=== PATIENT | female | born 1980 | race Caucasian/White ===

== ENCOUNTER 2017-12-23 19:07 | Day surgery (SDC) | payer OTHER ==
--- NOTE | 2017-12-24 06:04 | PRG ---
OB ED NOTE DATE OF SERVICE: 12/23/2017 TIME OF SERVICE: 2000 hours. PRESENTING COMPLAINT: Cramps. HISTORY OF PRESENT ILLNESS: Ms. Arellano is a 37-year-old 6, para 5, AB 0 at 31 weeks gestatio n, who sees Dr. Quintana. She denies rupture of membranes, vaginal bleeding, reports active fetus. S he reports occasional cramps since approximately 11:00 today. She denies rupture of membranes. OB AND CLIENT REPRESENTATIVE HISTORY: Antepartum record not available on the unit. x5. Reports a history of abno rmal Pap smear, this is going to be addressed . PAST MEDICAL HISTORY: Denies. PAST SURGICAL HISTORY: Denies. ALLERGIES: Denies. MEDICATIONS: vitamins. SOCIAL HISTORY: One half pack per day tobacco use, denies IV drug or alcohol use. FAMILY HISTORY: Noncontributory. REVIEW OF SYSTEMS: Noncontributory. PHYSICAL EXAMINATION: GENERAL: White female in no acute distress. VITAL SIGNS: Blood pressure 118/72, temperature 98.6, respirations 18, pulse 85. HEENT: Within normal limits. LUNGS: Clear to auscultation bilaterally. HEART: Regular rhythm. ABDOMEN: Soft, nontender. No rebound or guarding. PELVIC: Vulva without lesions. Vagina without discharge. Cervix closed, long, high, firm, cephalic presentation. EXTREMITIES: Without clubbing, cyanosis, or edema. FHTs are 130s to 140s, positive accelerations, n o decels, no contractions noted. IMPRESSION: Discomforts of at 31 weeks. No evidence of labor, no evidence of pret erm cervical dilatation. PLAN: Discharge home, keep scheduled 2-week followup with Dr. Quintana. ER precautions.
== END 2017-12-23 20:15 | disposition home or self-care (01) ==
LOC: L&D/OP 19:07
PROVIDERS: ATTEND Student in an Organized Health Care Education/Training Program
DX: O99.89 Other specified diseases and conditions complicating pregnancy, childbirth and the puerperium (principal); R25.2 Cramp and spasm; O99.333 Smoking (tobacco) complicating pregnancy, third trimester; Z3A.31 31 weeks gestation of pregnancy; Z79.899 Other long term (current) drug therapy
CPT/HCPCS: 99282

== ENCOUNTER 2018-02-16 07:25 | Inpatient (IN) | payer OTHER ==
[2018-02-16 07:35] VITALS: BMI 35.9
[2018-02-16] MEDS ORDERED: Methylergonovine 0.2 MG/ML VIAL IM PRN (08:47)
[2018-02-16] MEDS ORDERED: Ondansetron HCl/PF 4 MG/2 ML Vial IVP PRN ×3 (08:47→22:17)
[2018-02-16] MEDS ORDERED: Ibuprofen 800 MG TAB PO PRN (08:47)
[2018-02-16] MEDS ORDERED: LR / Pitocin 40 units/1000 ml 1,000 ML IV PRN (08:47)
[2018-02-16] MEDS ORDERED: HYDROcodone/Acetaminophen 5/325 mg Tablet PO PRN ×2 (08:47→22:17)
[2018-02-16] MEDS ORDERED: Diphenoxylate HCl/Atropine Tablet PO PRN (08:47)
[2018-02-16] MEDS ORDERED: Lidocaine 1% (PF) 30 ML VIAL SC PRN (08:47)
[2018-02-16] MEDS ORDERED: Misoprostol 200 MCG TAB PR PRN (08:47)
[2018-02-16] MEDS ORDERED: Promethazine HCl 25 MG/ML VIAL IM PRN ×2 (08:47→12:06)
[2018-02-16] MEDS ORDERED: Acetaminophen 500 MG TAB PO PRN (08:47)
[2018-02-16] MEDS ORDERED: Carboprost 250 MCG/ML AMP IM PRN (08:47)
[2018-02-16] MEDS: Lactated Ringer's 1,000 ML IV SCH ×2 (09:30→12:18)
--- NOTE | 2018-02-16 09:33 | PRG ---
DATE OF SERVICE: 02/16/2018 OB/ER ENCOUNTER PRIMARY OPS MANAGER: Dr. Madalyn Quintana at [facility]. CHIEF COMPLAINT: Abdominal pain. HISTORY OF PRESENT ILLNESS: The patient is a 37-year-old G6, P5 female with an intrauterine pregnanc y at 38 weeks and 6 days who is presenting to Labor and Delivery with abdominal pains, uterine contra ctions that began this morning at about 2:30 that have intensified. Patient is scheduled for inducti on of labor tomorrow. Patient reports bloody show on Saturday. Denies any leakage of fluid. Denies a ny recent illness, fever, fall, headache, chest pain, shortness of breath. She has had some nausea. Denies vomiting. Denies new skin rashes. Denies any significant bleeding, urinary urgency or frequ ency. PAST MEDICAL HISTORY: Significant for hepatitis C and squamous cell carcinoma diagnosed in . PAST SURGICAL HISTORY: Negative. SOCIAL HISTORY: The patient is a former IV drug user and uses tobacco. Denies any alcohol use. ALLERGIES: No known drug allergies. MEDICATIONS: vitamins. OB LABORATORY DATA: Blood type is O positive, antibody screen is negative. She is rubella immune, R MI is nonreactive. Hepatitis B surface antigen is negative. Again, she has hepatitis C, GC and chla mydia negative and has Pap smear positive for squamous cell carcinoma with reported biopsies with JAY 3. REVIEW OF SYSTEMS: Per HPI. PHYSICAL EXAMINATION: VITAL SIGNS: Blood pressure 136/81, heart rate of 74, respiratory rate of 20, satting 100% on room a ir, temperature 98.0. GENERAL: She appears to be in no acute distress. She is alert and oriented, cooperative and pleasan t to interact with. HEAD: Normocephalic, atraumatic. LUNGS: Clear to auscultation bilaterally. HEART: Has regular rate and rhythm. ABDOMEN: Soft and gravid. EXTREMITIES: Nontender, nonedematous. CERVICAL EXAM: Per nursing staff is 317 -1 station. heart tracing performed for abdominal pain at term duration thus far is approximately 30 minute s, baseline is noted to be in 110s with moderate long-term variability and positive accelerations, no decelerations. Contractions appeared to be every 5 minutes apart with irritability and inconsistent . ASSESSMENT AND PLAN: The patient is a 37-year-old female G6, P5 with an intrauterine at 38 weeks and 6 days, scheduled for an induction of labor tomorrow here presenting with contractions. A t this point, there is no evidence of active labor. We will reevaluate in a couple of hours to make further assessment. Dr. Rendon is coming on duty and will be taking over care. Dr. Quintana, her prim robert OB will be notified to assist in management decisions.
[2018-02-16 09:45] LABS: Mean Corpuscular HGB CONC 34.5 g/dL (32.0-36.0); Mean Corpuscular Hemoglobin 31.2 pg (27.0-31.0); Mean Corpuscular Volume 90.3 fl (81.0-99.0); Platelet Count 279 thou/uL (130-400); RBC Distribution Width 11.4 % (11.5-14.5); Red Blood Cell (RBC) Count 4.18 mill/uL (4.20-5.40)
[2018-02-16 10:07] LABS: ALT (SGPT) 21 U/L (8-55); AST (SGOT) 28 U/L (5-34); Albumin 3.7 g/dL (3.5-5.0); Alkaline Phosphatase 151 U/L (40-150); Anion Gap 15 mmol/L (10-20); BUN (Urea Nitrogen) 9 mg/dL (7.0-18.7); Bilirubin, Total 0.3 mg/dL (0.2-1.2); Calc. Creatinine Clearance 180 mL/min (70-130); Calcium 9.5 mg/dL (7.8-10.44); Carbon Dioxide 20 mmol/L (22-29); Chloride 104 mmol/L (98-107); Estimated GFR-MDRD Greater than 90; Globulin 3.4 g/dL (2.4-3.5); Glucose 115 mg/dL (70-105); Potassium 4.1 mmol/L (3.5-5.1); Protein, Total 7.1 g/dL (6.0-8.3); Sodium 135 mmol/L (136-145)
[2018-02-16 10:19] LABS: Amphetamine Not Detected (NotDetected); Barbiturates Screen Not Detected (NotDetected); Benzodiazepine Screen Not Detected (NotDetected); Cocaine Metabolite Screen Not Detected (NotDetected); Medtox Control Line Valid? VALID (VALID); Medtox Reader # READER 4; Methadone Not Detected (NotDetected); Methamphetamine Not Detected (NotDetected); Opiate Screen Not Detected (NotDetected); Oxycodone Screen Not Detected (NotDetected); Phencyclidine (PCP) Not Detected (NotDetected); THC/Cannabinoid Screen Not Detected (NotDetected); Tricyclic Screen Not Detected (NotDetected)
[2018-02-16 10:25] LABS: HBSAg Index 0.21 S/CO (0-0.99); Hep B Surf Ag Non-Reactive S/CO (NonReactive); Syphilis Antibody Nonreactive (Nonreactive); Syphilis Antibody Index 0.51 S/CO (<1.00 Non-Reactive)
[2018-02-16] MEDS ORDERED: LR 500 ML/Oxytocin 10 units 500 ML ONE (10:53)
[2018-02-16] MEDS ORDERED: Bupivacaine 0.5% 20 ML, Fentanyl 400 MCG in Sodium Chloride 0.9% 72 ML EPIDURAL SCH (11:15)
[2018-02-16] MEDS ORDERED: DISCONTINUE ALL PREVIOUS NARCOTICS FS SCH (11:15)
[2018-02-16] MEDS ORDERED: Eucerin (Mineral Oil/Petrolatum,White) 30 gm Jar TOP PRN (12:06)
[2018-02-16] MEDS ORDERED: Lactated Ringer's 500 ML IV PRN (12:06)
[2018-02-16] MEDS ORDERED: Naloxone HCl 0.4 mg/ml Vial IVP PRN ×2 (12:06)
[2018-02-16] MEDS ORDERED: Acetaminophen 325 MG TAB PO PRN (12:06)
[2018-02-16] MEDS ORDERED: ePHEDrine/0.9% NaCl/PF SYRINGE 50 mg/10 ml SLOW IVP PRN (12:06)
[2018-02-16] MEDS ORDERED: diphenhydrAMINE 50 MG/ML VIAL IVP PRN (12:06)
[2018-02-16] MEDS ORDERED: Communication Order-Pharmacy FS SCH (12:15)
[2018-02-16] MEDS ORDERED: Fentanyl 4mcg/Marcaine 0.1% Cassette 100 ML EPIDURAL SCH (12:15)
[2018-02-16] MEDS ORDERED: Nicotine 14 MG PATCH TOP SCH (13:00)
[2018-02-16] MEDS ORDERED: Bicitra 30 ML UDCUP ONE (15:03)
--- NOTE | 2018-02-16 16:21 | PDOC.EVN ---
Event Note - Event Note Event Note: @1615: AMNIOTOMY NOTE: Asked by Dr Lilian parry perform AROM. I discussed AROM procedure with patient at bedside. AROM performed without difficulty. Exam /. Moderate clear fluid noted. FHTS 150s. No complications noted. Internals not placed at this point.
[2018-02-16] MEDS ORDERED: Calcium Carbonate 500 MG ChewTAB PO SCH (16:45)
--- NOTE | 2018-02-16 18:59 | PDOC.OPDEL ---
OB Operative/Delivery Note Delivery Dr/Surgeon: Lilian Assist: n/a Pre-Delivery Diagnosis: active labor Procedure/Post Delivery Dx: spontaneous vaginal delivery Weeks gestation: 38 Anesthesia: epidural - Findings A Sex: male - 1 min: 9 - 5 min: 9 - Additional Findings/Plan Placenta delivered: spontaneous Repaired Obstetrical Laceration: none Estimated blood loss: 200 Compilations/Other Findings: NC x 1 reduced at perineum, true knot x 1. Post delivery plan: routine recovery
[2018-02-16 19:43] LABS: HIV (1/2) Antibody/Antigen Non-Reactive (NonReactive)
[2018-02-16] MEDS: LR 500 ML/Oxytocin 10 units 500 ML IV SCH (21:19)
[2018-02-16] MEDS ORDERED: LR / Pitocin 40 units/1000 ml 1,000 ML IV SCH (22:17)
[2018-02-16] MEDS ORDERED: Lanolin Ointment 7 GM TUBE TOP PRN (22:17)
[2018-02-16] MEDS ORDERED: Bisacodyl 10 MG SUPP PR PRN (22:17)
[2018-02-16] MEDS ORDERED: diphenhydrAMINE 25 MG CAP PO PRN (22:17)
[2018-02-16] MEDS ORDERED: Preparation H Ointment 28 GM TUBE PR PRN (22:17)
[2018-02-16] MEDS ORDERED: Benzocaine/Menthol 20-0.5% 60 ML CAN TOP PRN (22:17)
[2018-02-16] MEDS ORDERED: Milk Of Magnesia 30 ML UDCUP PO PRN (22:17)
[2018-02-16] MEDS ORDERED: Ibuprofen 800 MG TAB PO SCH (22:30)
[2018-02-16] MEDS ORDERED: Docusate Calcium (SURFAK) 240 MG CAP PO SCH (22:30)
[2018-02-16] MEDS ORDERED: Adacel (T-DAP) 0.5 ML VIAL IM ONE (22:45)
[2018-02-17] MEDS: Ibuprofen 800 MG TAB PO SCH ×3 (05:31→22:03)
--- NOTE | 2018-02-17 07:30 | PDOC.PP ---
Post Progress Note Post Day #: 1 PO intake tolerated: yes Flatus: yes Ambulation: yes Vital Signs (12 hours) Temp Pulse Resp BP 02/17/18 04:00 98.1 F 78 16 113/67 02/17/18 00:13 98.3 F 85 20 130/71 02/16/18 23:45 98.3 F 85 20 02/16/18 22:45 89 20 140/60 02/16/18 21:45 98.9 F 86 20 130/68 Weight Weight 229 lb - Physical Examination General: NAD Cardiovascular: RRR Respiratory: non-labored breathing Abdominal: no distention, appropriately TTP Fundus firm & at: umb-2 Extremities: negative homans (B) Neurological: no gross focal deficits Psychiatric: normal affect Result Diagrams: 02/16/18 09:29 02/16/18 09:29 Additional Labs: Post Labs Blood Type O POSITIVE 02/16/18 09:29 Hep Bs Antigen Non-Reactive S/CO (NonReactive) 02/16/18 09:29 - Assessment/Plan PPD1 s/p TSVD VSSAF Doing well lochia = menses Rh pos RImm HepC ok for , for FU with ID PP Cervical dysplasia- for [facility] with onc PP h/o drug use - UDS neg Cont PP care.
--- NOTE | 2018-02-17 07:31 | PDOC.LDHP ---
Labor and Delivery H&P Chief complaint: contractions HPI: 37yo at 38w6d by LMP with painful ctx q 5min, SVE change from 2-->3cm. No LOF VB. Current gestational age (weeks): 38 Due date: 02/24/18 Dating criteria: last menstrual period Grav: 6 Para: 5 Current complications: none Abnormal US findings: No Past Medical History: Active Hep C, h/o IV meth use, CIN3 Current medications: pre- vitamins Allergies/Adverse Reactions: Allergies Allergy/AdvReac Type Severity Reaction Status Date / Time No Known Allergies Allergy Verified 02/16/18 07:36 - Physical Exam Vital signs reviewed and normal: yes General: breathing through contractions Heart: RRR Lungs: CTAB Abdomen: gravid Extremeties: no edema FHT: category 1 [place] contractions every: q5min - Vaginal Exam cm dilated: 10 Effacement: 100% Station: 2+ - OB Labs RH: positive Antibody Screen: negative HIV: negative RPR: negative HEPSAg: negative 1 hour GCT: negative GBS: negative Urine drug screen: negative Rubella: immune - Assessment L&D Assessment: term patient in labor - Plan Plan: admit to L&D, labor augmentation if indicated, informed consent obtained, anesthesia consult for pain management -: Hep C precautions including no internal monitoring and avoiding prolonged ROM, for FU with ID PP for treatment.
[2018-02-17] MEDS: Docusate Calcium (SURFAK) 240 MG CAP PO SCH ×2 (08:07→22:04)
[2018-02-17] MEDS: Prenatal Vitamin 1 TAB PO SCH (08:07)
[2018-02-17] MEDS: Ferrous Sulfate 325 MG TAB PO SCH ×2 (08:08→18:04)
[2018-02-17] MEDS: LR 500 ML/Oxytocin 10 units 500 ML IV SCH (12:45)
[2018-02-17] MEDS: HYDROcodone/Acetaminophen 5/325 mg Tablet PO PRN (15:40)
[2018-02-18] MEDS: HYDROcodone/Acetaminophen 5/325 mg Tablet PO PRN (04:53)
[2018-02-18] MEDS: Ibuprofen 800 MG TAB PO SCH (06:04)
[2018-02-18 08:04] VITALS: BP 125/67; TEMP 97.8
[2018-02-18] MEDS: Ferrous Sulfate 325 MG TAB PO SCH (08:21)
[2018-02-18] MEDS: Prenatal Vitamin 1 TAB PO SCH (09:45)
[2018-02-18] MEDS: Docusate Calcium (SURFAK) 240 MG CAP PO SCH (09:45)
== END 2018-02-18 12:33 | disposition home or self-care (01) | DRG 774 ==
LOC: L&D/OP 07:25 → L&D 09:44 → 3SW 22:03
PROVIDERS: ADMIT Student in an Organized Health Care Education/Training Program; ATTEND Student in an Organized Health Care Education/Training Program
PROC: 10E0XZZ Delivery of Products of Conception, External Approach (ICD-10-PCS; principal; 2018-02-16)
DX: O9A.12 Malignant neoplasm complicating childbirth (principal); O98.42 Viral hepatitis complicating childbirth; C80.1 Malignant (primary) neoplasm, unspecified; B18.2 Chronic viral hepatitis C; O99.334 Smoking (tobacco) complicating childbirth; F17.210 Nicotine dependence, cigarettes, uncomplicated; O69.81X0 Labor and delivery complicated by cord around neck, without compression, not applicable or unspecified; O69.2XX0 Labor and delivery complicated by other cord entanglement, with compression, not applicable or unspecified; Z3A.38 38 weeks gestation of pregnancy; Z37.0 Single live birth
CPT/HCPCS: 51702; 80053; 80306; 85027; 86780; 86850; 86900; 86901; 87340; 87389; 88307; 99285; J2001; J2405; J3010; J3490; J7050; J7120

== ENCOUNTER 2018-06-30 10:18 | Emergency (ER) | payer OTHER ==
[2018-06-30 10:38] LABS: Bilirubin Small (Negative); Blood, Urine Negative (Negative); Clarity CLOUDY (Clear); Glucose, Urine (Dipstick) Negative (Negative); Leukocyte Trace (Negative); Nitrite Negative (Negative); Protein, Urine (Dipstick) Negative (Neg-Trace); Specific Gravity, Urine 1.016 (1.002-1.036); Urobilinogen 0.2 mg/dL (0.2-1.0)
[2018-06-30 10:39] LABS: Pregnancy Test - Urine (BHCG) Negative (Negative); Pregu Control Background? CLEAR/WHITE (CLR/WHITE); Pregu Control Bar Appear? YES (CONTROL BAR); Specific Gravity 1.016 (1.002-1.036)
[2018-06-30 10:40] LABS: Bacteria/HPF None Seen HPF (None Seen)
[2018-06-30 10:41] LABS: Pathc Cast-AUWi Flag 3.05 (0-2.49)
[2018-06-30 10:54] LABS: #Eosinphils 0.2 thou/uL (0.0-0.7); #Lymphocytes 1.8 thou/uL (1.20-3.40); #Monocytes 0.6 thou/uL (0.11-0.59); #Neutrophils 2.9 thou/uL (1.40-6.50); %Basophils 0.8 % (0.0-1.0); %Eosinophils 3.2 % (0.0-10.0); %Lymphocytes 31.7 % (21.0-51.0); %Monocytes 11.5 % (0.0-10.0); %Neutrophils 52.8 % (42.0-75.0); Hemoglobin 15.3 g/dL (12.0-16.0); Mean Corpuscular HGB CONC 34.6 g/dL (32.0-36.0); Mean Corpuscular Hemoglobin 31.4 pg (27.0-31.0); Mean Corpuscular Volume 90.7 fL (78.0-98.0); Mean Platelet Volume 8.3 fL (7.4-10.4); Platelet Count 238 thou/uL (130-400); RBC Distribution Width 11.6 % (11.5-14.5); Red Blood Cell (RBC) Count 4.88 mill/uL (4.20-5.40); White Blood Cell (WBC) Count 5.5 thou/uL (4.8-10.8)
[2018-06-30 10:54] LABS: Hyaline Casts/LPF 0-3 HYALINE CAST LPF (0-3 Hyaline); RBC/HPF 0-3 HPF (0-3)
[2018-06-30 10:55] LABS: Other Casts/LPF None Seen LPF (0-3 Hyaline)
[2018-06-30 11:13] LABS: ALT (SGPT) 55 U/L (8-55); AST (SGOT) 42 U/L (5-34); Albumin 4.4 g/dL (3.5-5.0); Alkaline Phosphatase 87 U/L (40-150); Anion Gap 15 mmol/L (10-20); BUN (Urea Nitrogen) 7 mg/dL (7.0-18.7); Bilirubin, Total 0.5 mg/dL (0.2-1.2); Calc. Creatinine Clearance 0 mL/min (70-130); Calcium 9.6 mg/dL (7.8-10.44); Carbon Dioxide 22 mmol/L (22-29); Chloride 104 mmol/L (98-107); Estimated GFR-MDRD 77; Globulin 3.7 g/dL (2.4-3.5); Glucose 118 mg/dL (70-105); Potassium 3.4 mmol/L (3.5-5.1); Protein, Total 8.1 g/dL (6.0-8.3); Sodium 138 mmol/L (136-145)
[2018-06-30] MEDS ORDERED: Ondansetron HCl/PF 4 MG/2 ML Vial ONE (11:36)
== END 2018-06-30 14:22 | disposition home or self-care (01) ==
LOC: ERS 10:18
DX: R10.30 Lower abdominal pain, unspecified (principal); R19.7 Diarrhea, unspecified; F17.210 Nicotine dependence, cigarettes, uncomplicated; Z79.899 Other long term (current) drug therapy
CPT/HCPCS: 36415; 80053; 81003; 81015; 81025; 85025; 96361; 96374; J2405

== ENCOUNTER 2019-02-17 17:54 | Emergency (ER) | payer OTHER, SELFPAY ==
[~2019-02-17 17:54] MED LIST: ISOVUE-370 76%-LOCM 1 ML ONE
[2019-02-17 18:57] LABS: Bilirubin Negative (Negative); Blood, Urine Negative (Negative); Clarity CLEAR (Clear); Glucose, Urine (Dipstick) Negative (Negative); Leukocyte Negative (Negative); Nitrite Negative (Negative); Protein, Urine (Dipstick) Negative (Neg-Trace); Specific Gravity, Urine 1.017 (1.002-1.036); Urobilinogen 0.2 mg/dL (0.2-1.0); pH, Urine 5.5 (5.0-9.0)
[2019-02-17 19:03] LABS: #Basophils 0.1 thou/uL (0.0-0.2); #Eosinphils 0.3 thou/uL (0.0-0.7); #Lymphocytes 3.4 thou/uL (1.20-3.40); #Monocytes 0.6 thou/uL (0.11-0.59); %Basophils 0.5 % (0.0-1.0); %Eosinophils 3.1 % (0.0-10.0); %Lymphocytes 32.9 % (21.0-51.0); %Monocytes 5.8 % (0.0-10.0); %Neutrophils 57.8 % (42.0-75.0); Hemoglobin 13.7 g/dL (12.0-16.0); Mean Corpuscular HGB CONC 33.6 g/dL (32.0-36.0); Mean Corpuscular Hemoglobin 31.3 pg (27.0-31.0); Mean Corpuscular Volume 93.1 fL (78.0-98.0); Mean Platelet Volume 7.9 fL (7.4-10.4); Platelet Count 279 thou/uL (130-400); RBC Distribution Width 11.6 % (11.5-14.5); White Blood Cell (WBC) Count 10.3 thou/uL (4.8-10.8)
[2019-02-17 19:23] LABS: ALT (SGPT) 73 U/L (8-55); AST (SGOT) 43 U/L (5-34); Albumin 3.9 g/dL (3.5-5.0); Alkaline Phosphatase 92 U/L (40-150); Anion Gap 9 mmol/L (10-20); BUN (Urea Nitrogen) 8 mg/dL (7.0-18.7); Bilirubin, Total Less than 0.2 mg/dL (0.2-1.2); Calc. Creatinine Clearance 0 mL/min (70-130); Calcium 9.2 mg/dL (7.8-10.44); Carbon Dioxide 26 mmol/L (22-29); Chloride 105 mmol/L (98-107); Estimated GFR-MDRD 75; Globulin 3.4 g/dL (2.4-3.5); Glucose 129 mg/dL (70-105); Lipase 17 U/L (8-78); Potassium 3.7 mmol/L (3.5-5.1); Protein, Total 7.3 g/dL (6.0-8.3); Sodium 136 mmol/L (136-145)
[2019-02-17 19:31] LABS: BHCG - Serum Negative (NEGATIVE); Pregs Control Background? CLEAR/WHITE (CLR/WHITE); Pregs Control Bar Appear? YES (CONTROL BAR)
--- NOTE | 2019-02-17 23:24 | CT ---
CT ABDOMEN AND PELVIS WITH CONTRAST: 02/17/19 HISTORY: Abdominal swelling. Pain. FINDINGS: There is some scarring in the lingula. No pericardial effusion. There is diffuse hepatic steatosis. Gallbladder is normal. No intrahepatic or extrahepatic biliary di latation. Multiple splenic granulomas, calcified, are present. The adrenal glands are unremarkable. No hydronephrosis. The aortoiliac contour is nonaneurysmal. The appendix is visualized and is normal. No dilated loops or large or small bowel. No adenopathy. Mo derate degenerative disc space disease at L5-S1 with end plate sclerosis. IMPRESSION: No acute inflammatory process within the abdomen or pelvis. POS: [facility]
== END 2019-02-17 23:40 | disposition home or self-care (01) ==
LOC: ERS 17:54
DX: R14.0 Abdominal distension (gaseous) (principal); R10.9 Unspecified abdominal pain; R79.89 Other specified abnormal findings of blood chemistry; I10 Essential (primary) hypertension; F17.210 Nicotine dependence, cigarettes, uncomplicated
CPT/HCPCS: 36415; 74177; 80053; 81003; 83690; 84703; 85025; Q9966

== ENCOUNTER 2020-08-07 20:04 | Inpatient (IN) | payer OTHER, SELFPAY ==
[2020-08-07] MEDS ORDERED: Vancomycin 1 GM/200 ML BAG ONE (20:54)
[2020-08-07] MEDS ORDERED: Ketorolac Tromethamine 30 MG/ML VIAL ONE (20:54)
[2020-08-07] MEDS ORDERED: Cefepime 2 GM VIAL ONE (20:54)
--- NOTE | 2020-08-07 21:41 | RAD ---
PORTABLE CHEST: History: Fever after spider bite. FINDINGS: Heart size and mediastinum are within normal limits. No infiltrative lung process seen. No significan t bony findings. IMPRESSION: No active intrathoracic disease. POS: OFF
[2020-08-07 22:13] LABS: ALT (SGPT) 18 U/L (8-55); AST (SGOT) 25 U/L (5-34); Albumin 3.4 g/dL (3.5-5.0); Alkaline Phosphatase 87 U/L (40-110); Anion Gap 15 mmol/L (10-20); BUN (Urea Nitrogen) 9 mg/dL (7.0-18.7); Bilirubin, Total 0.2 mg/dL (0.2-1.2); CK (CPK) 73 U/L (29-168); Calc. Creatinine Clearance 0 mL/min (70-130); Calcium 8.7 mg/dL (7.8-10.44); Carbon Dioxide 20 mmol/L (22-29); Chloride 104 mmol/L (98-107); Estimated GFR-MDRD 80; Globulin 3.7 g/dL (2.4-3.5); Glucose 70 mg/dL (70-105); Mean Platelet Volume 9.7 fL (7.4-10.4); Platelet Count 266 thou/uL (130-400); Potassium 3.9 mmol/L (3.5-5.1); Protein, Total 7.1 g/dL (6.0-8.3); Sodium 135 mmol/L (136-145)
[2020-08-07 22:14] LABS: #Basophils 0.1 thou/uL (0.0-0.2); #Eosinphils 0.2 thou/uL (0.0-0.7); #Lymphocytes 3.2 thou/uL (1.20-3.40); #Monocytes 1.2 thou/uL (0.11-0.59); #Neutrophils 8.7 thou/uL (1.40-6.50); %Basophils 0.4 % (0.0-1.0); %Eosinophils 1.2 % (0.0-10.0); %Lymphocytes 23.7 % (21.0-51.0); %Monocytes 9.1 % (0.0-10.0); %Neutrophils 65.5 % (42.0-75.0); Hemoglobin 14.2 g/dL (12.0-16.0); Mean Corpuscular HGB CONC 31.9 g/dL (32.0-36.0); Mean Corpuscular Hemoglobin 30.2 pg (27.0-31.0); Mean Corpuscular Volume 94.6 fL (78.0-98.0); RBC Distribution Width 12.2 % (11.5-14.5); Red Blood Cell (RBC) Count 4.71 mill/uL (4.20-5.40); White Blood Cell (WBC) Count 15.8 thou/uL (4.8-10.8)
--- NOTE | 2020-08-07 22:40 | PDOC.FPRHP ---
- History of Present Illness Chief Complaint: R Arm Pain History of Present Illness: Pt is a 40 y/o F who presents with R arm pain for the past week. She states that she was bitten by a spider (unsure what kind) and afterward developed arm swelling in her antecubital fossa which progressively got worse. She went to [facility] and was on IV antibiotics but stated that she left AMA 3 days ago because she was having bad panic attacks. She has not been taking any antibiotics during this time. Over the past 3 days her symptoms worsened and today the abscess started draining yellow fluid. She has been having subjective fevers and nausea and was concerned about the draining of the abscess and came back to the ER for this. She denied IV drug use and history of skin infections/MRSA infections. ED Course: vanc + cefepime, 1L NS, torodol IM - Allergies/Adverse Reactions Allergies Allergy/AdvReac Type Severity Reaction Status Date / Time No Known Allergies Allergy Verified 02/16/18 07:36 - Home Medications Medication Instructions Recorded Confirmed Type ALPRAZolam [Alprazolam] 1 tab PO BID 08/08/20 08/08/20 History Levothyroxine Sodium 125 mcg PO QAM 08/08/20 08/08/20 History buPROPion HCl [Wellbutrin] 300 mg PO QAM 08/08/20 08/08/20 History - History PMHx: -pre DM -anxiety/ocd/depression -Hypothyroidism PSHx: -cone biopsy 2019 -wrist surgery FHx: -DM and HTN Social: smokes 1PPD for last 25 years, occasional/social etoh, MJ use occasional , no IV drug hx - Review of Systems General: reports: fever/chills. denies: fatigue ENT: reports: nasal congestion, rhinorrhea Respiratory: denies: cough, congestion, shortness of breath Cardiovascular: denies: chest pain, palpitation Gastrointestinal: reports: nausea. denies: vomiting, diarrhea, constipation Genitourinary: denies: incontinence, dysuria, polyuria Skin: denies: rashes, itching Musculoskeletal: reports: pain, tenderness, swelling Neurological: denies: numbness Psychological: reports: anxiety - Vital signs BP: 102/70, HR 91, RR 16, Temp 98.1, O2 sat 100% on RA - Physical Exam Constitutional: NAD, awake, alert and oriented, well developed HEENT: PERRLA Neck: supple Heart: RRR, normal S1/S2, no murmurs/rubs/gallops Lungs: CTAB, no respiratory distress, good air movement, no rales/rhonchi, no wheezing Abdomen: soft, non-tender, bowel sounds present Musculoskeletal: normal structure, normal tone Neurological: no focal deficit, normal sensation -Skin: R arm, antecubital fossa induration, edema, warm to touch, erythema noted, drain site visible with some weeping and granulation type tissue surrounding area Heme/Lymphatic: no purpura, no petechia Psychiatric: other (anxious) FMR H&P: Results - Labs Result Diagrams: 08/08/20 04:54 08/08/20 04:54 Lab results: WBC 15.8 thou/uL (4.8-10.8) H 08/07/20 21:22 Hgb 14.2 g/dL (12.0-16.0) 08/07/20 21:22 Hct 44.5 % (36.0-47.0) 08/07/20 21:22 MCV 94.6 fL (78.0-98.0) 08/07/20 21:22 Plt Count 266 thou/uL (130-400) 08/07/20 21:22 Neutrophils % 65.5 % (42.0-75.0) 08/07/20 21:22 Sodium 135 mmol/L (136-145) L 08/07/20 21:22 Potassium 3.9 mmol/L (3.5-5.1) 08/07/20 21:22 Chloride 104 mmol/L (98-107) 08/07/20 21:22 Carbon Dioxide 20 mmol/L (22-29) L 08/07/20 21:22 BUN 9 mg/dL (7.0-18.7) 08/07/20 21:22 Creatinine 0.80 mg/dL (0.6-1.1) 08/07/20 21:22 Glucose 70 mg/dL (70-105) 08/07/20 21:22 Lactic Acid 1.5 mmol/L (0.5-2.2) 08/07/20 21:22 Calcium 8.7 mg/dL (7.8-10.44) 08/07/20 21:22 Total Bilirubin 0.2 mg/dL (0.2-1.2) 08/07/20 21:22 AST 25 U/L (5-34) 08/07/20 21:22 ALT 18 U/L (8-55) 08/07/20 21:22 Alkaline Phosphatase 87 U/L (40-110) 08/07/20 21:22 Creatine Kinase 73 U/L (29-168) 08/07/20 21:22 Serum Total Protein 7.1 g/dL (6.0-8.3) 08/07/20 21:22 Albumin 3.4 g/dL (3.5-5.0) L 08/07/20 21:22 - EKG Interpretation EKG: EKG NSR - Radiology Interpretation Chest x-ray Status: report reviewed by me (no acute cardiopulmonary process) FMR H&P: A/P - Plan 40 y/o F presents with one week of R arm pain and swelling. ## Sepsis 2/2 R Arm Cellulitis -tachycardia and leukocytosis -WBC 15.8, lactic acid 1.5 -vancomycin and cefepime in ED, continue with both -blood clx/wound clx -CBC, BMP -mIVF -NPO @ 12 AM with surgical consult in mind in AM -if patient become febrile will consider echo for endocarditis ## Pre Diabetes -A1C pend ## Hypothyroidism -on Levothyroxine at home ## Anxiety/Depression/OCD -continue home medications CODE: FULL VTE: lovenox DIET: regular, NPO @ 12AM PCP: Surya Boyd in [place] Dispo: admitted to inpatient FMR H&P: Upper Level - Plan Date/Time: 08/07/202238 IAlan [email or web address], have evaluated this patient and agree with findings/plan as outlined by journalism internship resident. Pertinent changes/additions are listed here. 40yo F with pmh of anxiety and hypothyroid presents with complaint of R arm pain. She was recently hospitalized in [facility] for cellulitis and abscess but eloped for several days without ABX. complains of fevers, nausea, no streaking or pain on mvmt of her arm. On exam she has HR 91 but otherwise vitals are wnl and stable. erythematous skin over R antecubital fossa with induration surrounding a 0.5cm x 0.5cm draining hole of purulent fluid, erythema is marked. A/P Sepsis 2/2 abscess and cellulitis A- Stable, not in shock. s/p 1L IVF, vanc, and cefepime. Pt did not receive adequate ABX at [facility] because of leaving AMA. P- continue vanc and cefepime -mIVF -f/u BCx and wound Cx -A1C as progression to DM would effect wound healing -gen surg consult in AM for I&D -consider echo if pt fevers again considering precarious location of infection and to r/o bacterial endocarditis Hypothyroid, Anxiety, prediabetes -home medications CODE: FULL dispo: inpatient, expect more than 2 midnights IVF: LR diet: npo at midnight Addendum - Attending - Attending Attestation Date/Time: 08/07/20 5540 I personally evaluated the patient and discussed the management with Dr. Bermeo and Dr. Leon I agree with the History, Examination, Assessment and Plan documented above with any addition or exceptions noted below. Patient with large abscess and surrounding area of cellulitis now with systemic symptoms qualifying for sepsis. Continue IVFs. Continue cef/vanc IV antibx. Culture obtained. Concern for drug use but patient denies. Left AMA without treatment at [facility] recently. Request records. US to be done. ESR/CRP orderd. ECHO if UDS pos. Blood cx pending. Gen surg for I&D and Washout. LMWH for VTE ppx. Tatyana
[2020-08-07] MEDS ORDERED: Ondansetron ODT 4 MG TAB PO PRN (23:17)
[2020-08-08 01:49] VITALS: BMI 34.4
[2020-08-08] MEDS: Acetaminophen 325 MG TAB PO PRN ×3 (02:06→20:54)
[2020-08-08] MEDS: Lactated Ringer's 1,000 ML IV SCH ×4 (02:06→22:24)
[2020-08-08] MEDS: Nicotine 14 MG PATCH TD SCH (02:18)
[2020-08-08] MEDS: ALPRAZolam 1 MG TAB PO SCH ×2 (02:18→20:54)
[2020-08-08 03:25] LABS: Amphetamine Detected (NotDetected); Barbiturates Screen Not Detected (NotDetected); Benzodiazepine Screen Detected (NotDetected); Cocaine Metabolite Screen Not Detected (NotDetected); Medtox Control Line Valid? VALID (VALID); Medtox Reader # READER 4; Methadone Not Detected (NotDetected); Methamphetamine Detected (NotDetected); Opiate Screen Not Detected (NotDetected); Oxycodone Screen Not Detected (NotDetected); Phencyclidine (PCP) Not Detected (NotDetected); THC/Cannabinoid Screen Detected (NotDetected); Tricyclic Screen Not Detected (NotDetected)
[2020-08-08] MEDS: Vancomycin 1.5 GRAM/300 ML BAG 1.5 GM in Premix Bag 1 BAG IVPB SCH ×3 (05:02→23:21)
[2020-08-08 05:10] LABS: #Eosinphils 0.3 thou/uL (0.0-0.7); #Lymphocytes 3.4 thou/uL (1.20-3.40); #Monocytes 0.9 thou/uL (0.11-0.59); #Neutrophils 5.8 thou/uL (1.40-6.50); %Basophils 0.4 % (0.0-1.0); %Eosinophils 2.5 % (0.0-10.0); %Lymphocytes 32.6 % (21.0-51.0); %Monocytes 8.7 % (0.0-10.0); %Neutrophils 55.8 % (42.0-75.0); Hemoglobin 12.7 g/dL (12.0-16.0); Mean Corpuscular HGB CONC 33.4 g/dL (32.0-36.0); Mean Corpuscular Volume 92.9 fL (78.0-98.0); Mean Platelet Volume 8.2 fL (7.4-10.4); Platelet Count 240 thou/uL (130-400); Red Blood Cell (RBC) Count 4.08 mill/uL (4.20-5.40); White Blood Cell (WBC) Count 10.5 thou/uL (4.8-10.8)
[2020-08-08] MEDS: Levothyroxine Sodium 125 MCG TAB PO SCH (05:10)
[2020-08-08 05:15] LABS: Hemoglobin A1c 5.1 % (4.0-6.0)
[2020-08-08 05:26] LABS: Lactic Acid 0.9 mmol/L (0.5-2.2)
[2020-08-08 05:30] LABS: Anion Gap 11 mmol/L (10-20); BUN (Urea Nitrogen) 12 mg/dL (7.0-18.7); Calc. Creatinine Clearance 177 mL/min (70-130); Calcium 8.7 mg/dL (7.8-10.44); Carbon Dioxide 23 mmol/L (22-29); Chloride 106 mmol/L (98-107); Estimated GFR-MDRD Greater than 90; Glucose 104 mg/dL (70-105); Potassium 3.8 mmol/L (3.5-5.1); Sodium 136 mmol/L (136-145)
--- NOTE | 2020-08-08 07:22 | PDOC.FM ---
- Subjective Subjective: Pt was sleeping comfortably when I saw her and was easy to arouse. She has no complaints at this time. She adamantly denies recent drug use, aside from marijuana, despite UDS positive for amphetamines and meth. She states the last time she used drugs other than marijuana was >10yrs ago. She said what she smoked belonged to someone else and she is not sure if it was laced with anything. When asked if her experience this time was different than usual she responded "it was not usual but I don't want to talk about it". She endorses pain with flexion of elbow but denies subjective fever, chills, dyspnea/SOB. - Objective Vital Signs & Weight: Vital Signs (12 hours) Temp Pulse Resp BP BP Pulse Ox 08/08/20 05:02 97.8 F 70 18 114/77 96 08/08/20 01:15 97.5 F L 73 18 127/76 97 Weight Weight 99.7 kg I&O: 08/07/20 08/08/20 08/09/20 06:59 06:59 06:59 Intake Total 1015 Balance 1015 Result Diagrams: 08/08/20 04:54 08/08/20 04:54 Phys Exam - Physical Examination Constitutional: NAD (Sleeping comfortably. Easily aroused) Respiratory: clear to auscultation bilateral Cardiovascular: RRR, no significant murmur Neurological: non-focal Psychiatric: normal affect Deviation from normal: Bandage covering wound. Erythema extending superiorly and inferiorly -: Erythema poorly demarcated; border marked and dated 08/07. Dx/Plan - Plan Plan: 40 y/o F presents with one week of R arm pain and swelling. Sepsis 2/2 R Arm Cellulitis - Tachycardia on arrival -> HR 70 on unit - Leukocytosis of 15.8 on arrival -> 10.5 on repeat - Afebrile - Lactic acid 1.5 -> 0.9 on repeat - Vancomycin and cefepime in ED, continue with both - Blood clx/wound clx pending - UDS positive for amph, meth, cannabinoids, benzos Admits to marijuana use Takes Xanax for anxiety Patiently adamantly denies other illicit/IV drug use - HIV 1/2, HepBSAg, Syphilis IgG/IgM non-reactive - Hep C Quant pending - mIVF - NPO @ 12 AM with possible surgical consult - Consider echo for endocarditis if becomes febrile Nicotine dependence - Nicotine patch - Smoking cessation counseling Pre Diabetes - A1C 5.1 Hypothyroidism - Levothyroxine at home - Resume home meds Anxiety/Depression/OCD - Continue home medications CODE: FULL VTE: lovenox DIET: regular, NPO @ 12AM PCP: Surya Boyd in [place] Dispo: admitted to inpatient, LOS >48h Addendum - Attending - Attending Attestation Date/Time: 08/08/20 1689 I personally evaluated the patient and discussed the management with Dr. Maria. I agree with the History, Examination, Assessment and Plan documented above with any addition or exceptions noted below. Sepsis 2/2 cellulitis c/b abscess formation s/p debridement with worsening o/n. Will d/w GS.
[2020-08-08 07:36] LABS: Pregnancy Test - Urine (BHCG) Negative (Negative)
[2020-08-08 07:38] LABS: Pregu Control Background? CLEAR/WHITE (CLR/WHITE); Pregu Control Bar Appear? YES (CONTROL BAR); Specific Gravity 1.042 (1.002-1.036)
[2020-08-08 08:29] LABS: HBSAg Index 0.13 S/CO (0-0.99); HIV (1/2) Antibody/Antigen Non-Reactive (NonReactive); Hep B Surf Ag Non-Reactive S/CO (NonReactive)
[2020-08-08 08:32] LABS: Hep C IgG Ab Reflex HepC Qnt (NonReactive); Hep C Index 13.49 S/CO (0-0.79)
[2020-08-08 08:50] LABS: Syphilis Antibody Nonreactive (Nonreactive); Syphilis Antibody Index 0.28 S/CO (<1.00 Non-Reactive)
--- NOTE | 2020-08-08 10:05 | ULT ---
ULTRASOUND SOFT TISSUE OTHER: (RIGHT ANTECUBITAL FOSSA) HISTORY: Pus draining from open wound at right antecubital fossa. FINDINGS/IMPRESSION: Sonographic evaluation of region of wound in the right antecubital fossa demonstrates no underlying l oculated fluid collection. There is soft tissue swelling and edema in this region. POS: OFF
[2020-08-08] MEDS: Enoxaparin Sodium 40 MG/0.4 ML SYRINGE SC SCH (10:33)
[2020-08-08] MEDS: buPROPion HCl 100 MG TAB PO SCH (10:34)
[2020-08-08 11:43] LABS: SARS-CoV-2 MS2 Positive; SARS-CoV-2 N Gene Negative; SARS-CoV-2 S Gene Negative; SARS-CoV-2 by NAA Not Detected (NotDetected); SARS-CoV-2 orf1ab Negative
[2020-08-08] MEDS: Cefepime 2 GM in Sodium Chloride 0.9% 100 ML IVPB SCH ×2 (12:14→22:23)
--- NOTE | 2020-08-08 16:15 | PDOC.CONS ---
- Consultation Encounter Date: 08/08/20 Encounter Time: 16:11 CHIEF COMPLAINT: Right arm pain HISTORY OF PRESENT ILLNESS: 40-year-old female with 1 week history of right arm pain. The patient suffered what she describes as a spider bite approximately 1 week ago. This became warm , erythematous, and painful. She was admitted to [facility] in [place] where she underwent antibiotic therapy. Reportedly , she left that institution AGAINST MEDICAL ADVICE. She presented to [facility] ER yesterday evening with concerns about the drainage. It is unclear whether the abscess spontaneously drained, or she underwent a drainage procedure. REVIEW OF SYSTEMS: General: Denies recent weight changes, fever, or chills. Eyes: Denies visual changes, pain, or irritation ENT: Denies changes in hearing, nasal discharge, or sore throat Cardiovascular: Denies chest pain, palpitations, shortness of breath, or edema. Respiratory: Denies cough, shortness of breath, or wheezing Gastrointestinal: Denies abdominal pain, nausea, or vomiting. Genitourinary: Denies frequent urination or dysuria Musculoskeletal: Per HPI Integumentary: Denies abnormal rashes, sores, or skin lesions Neurological: Denies numbness, tingling, or weakness. Psychiatric: Denies new onset anxiety or depression Endocrine: Denies temperature intolerances, polyuria, or excessive thirst Hematologic: Denies abnormal bruising or bleeding PAST MEDICAL HISTORY: Anxiety depression Hypothyroidism PAST SURGICAL HISTORY: Biopsy FAMILY HISTORY: Uncontributory SOCIAL HISTORY Current smoker, occasional illicit drug use, endorses occasional alcohol consumption. ALLERGIES: No known drug allergies PHYSICAL EXAM: Vital Signs: HR 91 BP 102/70 T 98.1 RR 16 SpO2 100% room air General: Alert and somnolent no acute distress. Obese ENT: Sclera anicteric, pupils equal and reactive, mucous membranes moist Neck: No jugular venous distention, trachea midline Cardiovascular: Regular rate and rhythm Pulmonary: Clear to auscultation Abdominal: Soft, nondistended, nontender Genitourinary: Normal anatomy Rectal: Deferred Integument: No abnormal rashes or lesions Musculoskeletal: Erythema, warmth, and induration of the antecubital fossa. Approximately 5 mm opening with mild purulent discharge. No appreciable fluid collection LABORATORY: Laboratory analysis reviewed and demonstrates white blood cell count of 10.5. Hemoglobin 12.7. Other labs grossly normal. Microbiology results reviewed and demonstrates Staphylococcus aureus. IMAGING: Ultrasound of the right upper extremity reviewed as well as the radiologist rotation. Demonstrates no evidence of fluid collection. ASSESSMENT: 40-year-old female with soft tissue infection of the right antecubital fossa with spontaneously draining abscess versus previous incision and drainage. No further drainage indicated. Consider packing wound with iodoform gauze. Continue antibiotics for MRSA coverage. PLAN: [ ]
[2020-08-08 21:30] LABS: Vancomycin, Trough 17.9 ug/mL
[2020-08-09] MEDS: Nicotine 14 MG PATCH TD SCH ×2 (03:24→06:07)
--- NOTE | 2020-08-09 05:19 | PDOC.FM ---
- Subjective Subjective: Cherrie(r)dari Arellano is feeling better today. She is requesting something more for pain either than Tylenol. She denies SOB/dyspnea/CP/new edema. - Objective Vital Signs & Weight: Vital Signs (12 hours) Temp Pulse Resp BP Pulse Ox 08/09/20 03:43 98.1 F 74 17 125/84 97 08/09/20 00:07 97.7 F 85 16 108/68 99 08/08/20 20:41 97.9 F 87 16 112/71 99 Weight Admit Weight 99.7 kg Weight 99.7 kg I&O: 08/07/20 08/08/20 08/09/20 06:59 06:59 06:59 Intake Total 1015 Balance 1015 Result Diagrams: 08/09/20 07:08/08/20 04:54 Phys Exam - Physical Examination Constitutional: NAD (Sleeping comfortably and easily arousable) Neck: supple, full ROM B/l rhonchi consistent with 25pkyr hx Cardiovascular: RRR, no significant murmur (difficult to auscultate, likely 2/2 hyperinflation) Neurological: non-focal, moves all 4 limbs Psychiatric: normal affect, A&O x 3 Deviation from normal: Erythema/Edema/Induration improved from yesterday -: Open I&D drainage site, can track, no obvious purulence Dx/Plan - Plan Plan: 40 y/o F presents with one week of R arm pain and swelling. Sepsis 2/2 R Arm Cellulitis - Tachycardia on arrival -> HR 70 on unit - Leukocytosis of 15.8 on arrival -> 10.5 -> 9.2 on 08/09 - Afebrile - Lactic acid 1.5 -> 0.9 on repeat - Vancomycin and cefepime x3 days on 08/09 Begin transition to oral - Wound Cx showed S. aureus Sensitivities pending - UDS positive for amph, meth, cannabinoids, benzos Admits to marijuana use Takes Xanax for anxiety Adamantly denies other illicit/IV drug use - HIV 1/2, HepBSAg, Syphilis IgG/IgM non-reactive - Hep C positive Hep C Quant pending - mIVF - Surgery consulted, seen by Dr. Lunsford on 08/08 Surgery not indicated, recommended continuing current abx - Consider echo for endocarditis if becomes febrile Nicotine dependence - 25pkyr smoking hx Pt says she is trying to cut down/quit. - Nicotine patch ordered - Smoking cessation counseling Pre Diabetes - A1C 5.1 - Consistent carb diet Hypothyroidism - Levothyroxine at home - Resume home meds Anxiety/Depression/OCD - Continue home medications Code: FULL DVT Ppx: lovenox Diet: CC PCP: Surya Boyd in [place] Dispo: admitted to inpatient, LOS >48h Addendum - Attending - Attending Attestation Date/Time: 08/09/20 7429 I personally evaluated the patient and discussed the management with the team. I agree with the History, Examination, Assessment and Plan documented above with any addition or exceptions noted below. No fever/chills. The arm has improved and the erythema has receded somewhat. Transition to PO antibiotics, pack wound, and dc.
[2020-08-09] MEDS: Vancomycin 1.5 GRAM/300 ML BAG 1.5 GM in Premix Bag 1 BAG IVPB SCH (06:07)
[2020-08-09] MEDS: Levothyroxine Sodium 125 MCG TAB PO SCH (06:10)
[2020-08-09 07:26] LABS: #Eosinphils 0.3 thou/uL (0.0-0.7); #Lymphocytes 3.4 thou/uL (1.20-3.40); #Monocytes 0.5 thou/uL (0.11-0.59); #Neutrophils 5.1 thou/uL (1.40-6.50); %Basophils 0.5 % (0.0-1.0); %Eosinophils 2.8 % (0.0-10.0); %Lymphocytes 36.7 % (21.0-51.0); %Monocytes 5.4 % (0.0-10.0); %Neutrophils 54.6 % (42.0-75.0); Hemoglobin 12.2 g/dL (12.0-16.0); Mean Corpuscular HGB CONC 32.6 g/dL (32.0-36.0); Mean Corpuscular Hemoglobin 30.8 pg (27.0-31.0); Mean Corpuscular Volume 94.4 fL (78.0-98.0); Mean Platelet Volume 7.9 fL (7.4-10.4); Platelet Count 270 thou/uL (130-400); Red Blood Cell (RBC) Count 3.97 mill/uL (4.20-5.40); White Blood Cell (WBC) Count 9.2 thou/uL (4.8-10.8)
[2020-08-09] MEDS ORDERED: Ibuprofen 800 MG TAB PO PRN (09:05)
[2020-08-09] MEDS: buPROPion HCl 100 MG TAB PO SCH (09:20)
[2020-08-09] MEDS: ALPRAZolam 1 MG TAB PO SCH (09:20)
[2020-08-09] MEDS: Cefepime 2 GM in Sodium Chloride 0.9% 100 ML IVPB SCH (09:21)
[2020-08-09] MEDS: Lactated Ringer's 1,000 ML IV SCH ×2 (09:22→14:40)
[2020-08-09] MEDS: Enoxaparin Sodium 40 MG/0.4 ML SYRINGE SC SCH (09:26)
[2020-08-09 10:48] VITALS: BP 133/77; TEMP 98
--- NOTE | 2020-08-09 14:35 | EKG ---
Test Reason : Blood Pressure : / mmHG Vent. Rate : 091 BPM Atrial Rate : 091 BPM P-R Int : 182 ms QRS Dur : 078 ms QT Int : 338 ms P-R-T Axes : 061 041 050 degrees QTc Int : 415 ms Normal sinus rhythm Possible Left atrial enlargement Borderline ECG Confirmed by ALEXIS FIELDS DO ([id number]), assistant film editor MAYKEL ARMOS ([id number] on 08/09/2020 2:34:27 PM Referred By: Confirmed By:ALEXIS FIELDS DO
[2020-08-09] MEDS ORDERED: Sulfameth/Trimethoprim DS 800-160mg TAB PO SCH (21:00)
[2020-08-10 12:38] LABS: HCV log10 6.919 (.); Hep C PCR-Quant 8290000 IU/mL (.)
--- NOTE | 2020-08-10 15:49 | DIS ---
DATE OF ADMISSION: 08/07/2020 DATE OF DISCHARGE: 08/09/2020 RESIDENT: Ruma Lubin MD ADMITTING ATTENDING: Kareen Camp MD DISCHARGE ATTENDING: Reid Howell MD CONSULTS: General Surgery (08/08). PROCEDURE: I&D (08/07). PRIMARY DIAGNOSIS: Sepsis 2/2 right arm abscess. SECONDARY DIAGNOSES: 1. Hepatitis C. 2. Anxiety. 3. Depression. 4. Obsessive compulsive disorder. 5. Prediabetes. 6. Hypothyroidism. 7. Nicotine dependance. DISCHARGE MEDICATIONS: 1. Bactrim 2 tablets p.o. b.i.d. x5 days. 2. Alprazolam 1 mg. 3. Wellbutrin 300 mg. 4. Levothyroxine 125 mcg. 5. Fluvoxamine 50 mg. DISCONTINUED MEDICATIONS: None. HISTORY OF PRESENT ILLNESS/HOSPITAL COURSE: This is a 40-year-old female who presented with right arm pain x7 days. She said she was bitten by a spider which became a swelling in her right antecubital fossa. She initially went to [facility] and was placed on IV antibiotics, but left AMA due to panic attacks. She was out of hospital and without antibiotics for three days prior to presenting to ED here, during which her symptoms worsened. On the day of admission, her abscess had started draining yellow fluid, she was having subjective fevers and nausea. She was tachycardic and had a leukocytosis with a white count of 15.8 as well as a lactic acid of 1.5. She was started on vancomycin and cefepime in the ED and blood and wound cultures were collected. I&D was performed. Within less than 24 hours, her tachycardia and leukocytosis had resolved, she remained afebrile, and her lactic acid decreased. Her UDS came back positive for amphetamines, methamphetamines, benzodiazepines, and cannabinoids. The benzodiazepines are accounted for y her Xanax prescription and she endorses use of marijuana. She continued adamantly denying illicit drug use beyond marijuana. HIV-1 and 2, hep B surface antigen, syphilis IgG/IgM were nonreactive. Hepatitis C came back positive which patient said she was already aware of and that she has not received treatment due to being uninsured. General surgery was consulted on 08/08 to determine if further surgical drainage was necessary. Dr. Lunsford saw her and performed ultrasound of the right upper extremity which demonstrated no evidence of fluid collections, so he felt no further drainage was indicated and recommended continued antibiotic use for MRSA coverage. Wound culture grew Staph aureus, sensitive to Bactrim. The blood cultures showed no growth. The wound was packed and the patient was sent home on Bactrim with recommendation to follow up with a primary care physician within one week. DISPOSITION: Stable. DISCHARGE INSTRUCTIONS: Location: Home. Diet: Heart-healthy. Activity: As tolerated. Followup: Outpatient with a primary care physician. Job ID: [id number] [id number]
== END 2020-08-09 20:17 | disposition home or self-care (01) | DRG 872 ==
LOC: ERS 20:04 → SURG A 23:01
PROVIDERS: ADMIT Student in an Organized Health Care Education/Training Program; ATTEND Student in an Organized Health Care Education/Training Program
DX: A41.01 Sepsis due to Methicillin susceptible Staphylococcus aureus (principal); L03.114 Cellulitis of left upper limb; L02.414 Cutaneous abscess of left upper limb; Z20.828 Contact with and (suspected) exposure to other viral communicable diseases; F41.9 Anxiety disorder, unspecified; F32.9 Major depressive disorder, single episode, unspecified; F42.9 Obsessive-compulsive disorder, unspecified; E03.9 Hypothyroidism, unspecified; F17.210 Nicotine dependence, cigarettes, uncomplicated; R73.03 Prediabetes; Z79.899 Other long term (current) drug therapy; Z79.890 Hormone replacement therapy
CPT/HCPCS: 36415; 71045; 76999; 80048; 80053; 80202; 80306; 81025; 82550; 83036; 83605; 84145; 85025; 85652; 86140; 86780; 86803; 87040; 87070; 87077; 87186; 87205; 87340; 87389; 87522; 87635; 93005; 96365; 96366; 96367; 96375; J0692; J1885; J3370; J3490; U0003